=== PATIENT | female | born 1970 | race Two or more races ===

== ENCOUNTER 2025-02-08 18:43 | Emergency (ER) | payer MEDICAID, OTHER ==
[~2025-02-08] VITALS: Ht 162.6 cm; Wt 81.9 kg
[2025-02-08 18:44] VITALS: BP 142/91; PULSE 119; RESP 17; TEMP 98.7; O2SAT 92
--- NOTE | 2025-02-08 19:31 | DVH ---
CHEST RADIOGRAPH Indication: cough x 1 month Technique: Single frontal view of the chest was obtained Comparison: None FINDINGS: Lines and Tubes: None Lungs: Right lower lobe airspace disease consistent with pneumonia Pleura: No effusion. No pneumothorax. Cardiomediastinal contours: Unremarkable Bones: No acute osseous abnormality. IMPRESSION: 1. Right lower lobe infiltrate
[2025-02-08] MEDS ORDERED: ONDANSETRON ODT 4 MG TAB PO ONE (20:15)
[2025-02-08] MEDS ORDERED: AMOXICILLIN/CLAVUL 875 MG TAB PO ONE (20:15)
[2025-02-08] MEDS ORDERED: AZITHROMYCIN 250 MG TAB PO ONE (20:15)
[2025-02-08] MEDS ORDERED: AUG875T PO (20:25)
[2025-02-08] MEDS ORDERED: ZOFR4T PO (20:25)
[2025-02-08] MEDS ORDERED: AZIT-185 PO (20:25)
[2025-02-08] MEDS ORDERED: GUA200LQ PO (20:25)
--- NOTE | 2025-02-08 20:25 | ED.PDOC ---
History of Present Illness HPI Comments 54-year-old female with no past medical history presenting for evaluation of persistent cough over the past month. Patient reports she may have had subjective fevers over the past few days. Feels that the cough is not resolving. No reporting increased greenish sputum. Denies any current chest pain, shortness of breath. Denies any smoking history. Chief Complaint: Cough Time Seen by MD: 18:54 Allergies: Coded Allergies: No Known Drug Allergy (Verified Allergy, Unknown, 02/08/25) Home Meds Active Scripts Guaifenesin (Guaifenesin) 100 Mg/5 Ml Syp, 200 MG PO Q6HPRN PRN for 5 Days, #120 SYP Prov:DANIEL ZAVALA MD 02/08/25 Ondansetron Odt 4MG Tab (ZOFRAN PO) 4 Mg Tb, 4 MG PO Q6HPRN PRN for 5 Days, #20 TAB ODT TAB-DISSOLVE IN MOUTH, THEN SWALLOW Prov:DANIEL ZAVALA MD 02/08/25 Azithromycin (ZITHROMAX TABLET) 250 Mg Tb, 250 MG PO DAILY for 4 Days, #4 TAB Prov:DANIEL ZAVALA MD 02/08/25 Amoxicillin & Pot Clavulanate (AUGMENTIN TABLET) 875 Mg Tb, 875 MG PO BID for 7 Days, #14 TAB Prov:DANIEL ZAVALA MD 02/08/25 Information Source: Patient Mode of Arrival: Ambulatory Past Medical History PAST MEDICAL HISTORY: Denies Family History Family History: Reviewed,noncontributory to illness Social History Smoker: Non-Smoker Drugs: Denies Drug Use Constitutional: denies: chills, diaphoresis, fatigue, fever, malaise, sweats, weakness, others EENTM: denies: blurred vision, double vision, ear bleeding, ear discharge, ear drainage, ear pain, ear ringing, eye pain, eye redness, hearing loss, mouth pain, mouth swelling, nasal discharge, nose bleeding, nose congestion, nose pain, photophobia, tearing, throat pain, throat swelling, voice changes, others Respiratory: reports: cough, hemoptysis, orthopnea, SOB at rest, shortness of breath, SOB with excertion, stridor, wheezing, others Cardiovascular: denies: chest pain, dizzy spells, diaphoresis, Dyspnea on exertion, edema, irregular heart beat, left arm pain, lightheadedness, palpitations, PND, syncope, others Gastrointestinal: denies: abdomen distended, abdominal pain, blood streaked bowels, constipated, diarrhea, dysphagia, difficulty swallowing, hematemesis, melena, nausea, poor appetite, poor fluid intake, rectal bleeding, rectal pain, vomiting, others Genitourinary: denies: abnormal vagina bleeding, burning, dyspareunia, dysuria, flank pain, frequency, hematuria, incontinence, pain, , vagina discharge, urgency, others Neurological: denies: dizziness, fainting, headache, left sided numbness, left sided weakness, numbness, paresthesia, pre-existing deficit, right sided numbness, right sided weakness, seizure, speech problems, tingling, tremors, weakness, others Musculoskeletal: denies: back pain, gout, joint pain, joint swelling, muscle pain, muscle stiffness, neck pain, others Integumetry: denies: bruises, change in color, change in hair/nails, dryness, laceration, lesions, lumps, rash, wounds, others Allergic/Immunocompromised: denies: Difficulty Healing, Frequent Infections, Hives, Itching, others Endocrine: denies: excessive hunger, excessive sweating, excessive thirst, excessive urination, flushing, intolerance to cold, intolerance to heat, unexplained weight gain, unexplained weight loss, others Psychiatric: denies: anxiety, bipolar disorder, depression, hopeless, panic disorder, schizophrenia, sleepless, suicidal, others All Other Systems: Reviewed and Negative Physical Exam General Appearance: Normal HEENT: Normal ENT Inspection Neck: None Respiratory: Crackles, No Accessory Muscle Use, No Respiratory Distress Cardiovascular: No Edema Breast Exam: Deferred Gastrointestinal: Non Tender, Soft Genitalia: Deferred Pelvic: Deferred Rectal: Deferred Extremities: Normal range of motion, Non-tender Neurologic: Alert, organizational development specialist II-XII nml as Tested, No Motor Deficits Cerebellar Function: Normal Reflexes: Normal Skin: Normal Color Lymphatic: No Adenopathy Was a procedure done? Was a procedure done?: No Differential Dx Considerations may include: Viral upper respiratory tract infection versus bronchitis versus pneumonia X-Ray, Labs, Meds, VS Vital Signs Date Time Temp Pulse Resp B/P (MAP) Pulse Ox O2 Delivery O2 Flow Rate FiO2 02/08/25 18:44 98.7 119 17 142/91 92 98.7 Time of 1ST Reevaluation: 20:14 (Patient feels fine whenever she is seated, no pain at this time.) Reevaluation 1ST: Unchanged Patient Education/Counseling: Diagnosis, Treatment, Need For Follow Up Family Education/Counseling: No Family Present SEPSIS Sepsis Screen Date sepsis recognized/suspect: Feb 08, 2025 Time Sepsis recognized/suspect: 1843 Recent Procedure: No On Antibiotic Therapy: No Respiratory Rate >20: No Heart Rate >90: Yes Temp<36 C (96.8 F) or >38.3 C: No SBP <90 or MAP <65 mmHG: No New Acute Mental Status Change: No Is the patient on CPAP, BIPAP,: No Physician Orders Chest Xray 1 View (02/08/25 18:56) Vital Signs Date Time Temp Pulse Resp B/P (MAP) Pulse Ox O2 Delivery O2 Flow Rate FiO2 02/08/25 18:44 98.7 119 17 142/91 92 98.7 Departure 1 Departure Time of Disposition: 20:16 (54-year-old female with no past medical history presenting for evaluation of persistent cough over the past month. The persistent cough consider possible viral upper respiratory tract infection vs bronchitis vs bacterial pneumonia. Patient noted to be mildly tachycardic upon arrival, however, is frequently coughing. Oxygen level noted to be slightly low as well. However, despite this patient appears well, nontoxic. Patient informed of right lower lobe pneumonia. I recommended labs, IV antibiotics, admission for further management. However, shared decision-making was performed with the patient and she declined additional interventions. Pt prefers to be given oral antibiotics and be discharged as soon as possible. Patient was given oral Tylenol, guaifenesin here symptoms. Given the 1st dose of oral Augmentin, azithromycin. Given ODT Zofran. Patient will then be discharged with a prescription for Augmentin, azithromycin, guaifenesin, Zofran. However, advised to return for worsening symptoms.) Impression: Primary Impression: Cough Additional Impressions: Right lower lobe pneumonia Community acquired pneumonia Disposition: HOME / SELF CARE / HOMELESS Condition: Serious Additional Instructions: You were evaluated today for persistent cough. You have a lower lobe pneumonia. You declined any labs or admission for further management. For this reason you were given a prescription for 2 different antibiotics which should provide broad-spectrum coverage for a community-acquired pneumonia. You were given the 1st dose of antibiotics here. The azithromycin is once per day. You may start taking the next dose of azithromycin on the night of 02/09/25. You were given the 1st dose of Augmentin which is twice per day. You can take the next dose in the morning. Return to the emergency department for worsening symptoms despite oral antibiotics. e-Prescriptions Guaifenesin (Guaifenesin) 100 Mg/5 Ml Syp 200 MG PO Q6HPRN PRN for 5 Days, #120 SYP Prov: DANIEL ZAVALA MD 02/08/25 Ondansetron Odt 4MG Tab (ZOFRAN PO) 4 Mg Tb 4 MG PO Q6HPRN PRN for 5 Days, #20 TAB ODT TAB-DISSOLVE IN MOUTH, THEN SWALLOW Prov: DANIEL ZAVALA MD 02/08/25 Azithromycin (ZITHROMAX TABLET) 250 Mg Tb 250 MG PO DAILY for 4 Days, #4 TAB Prov: DANIEL ZAVALA MD 02/08/25 Amoxicillin & Pot Clavulanate (AUGMENTIN TABLET) 875 Mg Tb 875 MG PO BID for 7 Days, #14 TAB Prov: DANIEL ZAVALA MD 02/08/25 Discharged With: Self Critical Care Note Critical Care Time?: No Stability Stability form required: No DANIEL ZAVALA MD Feb 08, 2025 20:25
[2025-02-08] MEDS ORDERED: ACETAMINOPHEN 325 MG TAB PO ONE (20:30)
== END 2025-02-08 22:27 | disposition home or self-care (01) ==
LOC: ER 18:43
DX: J18.9 Pneumonia, unspecified organism (principal); R05.9 Cough, unspecified; Z79.899 Other long term (current) drug therapy
CPT/HCPCS: 71045